=== PATIENT | female | born 1980 | race Hispanic/Latino ===

== ENCOUNTER 2021-11-14 10:38 | Emergency (ER) | payer OTHER ==
[~2021-11-14] VITALS: Ht 144.8 cm; Wt 74.8 kg
[2021-11-14] MEDS ORDERED: ONDANSETRON ODT4 MG PO (11:07)
[2021-11-14] MEDS ORDERED: BACTRIM DS TAB1 EACH PO (11:07)
[2021-11-14] MEDS ORDERED: MELOXICAM7.5 MG PO (11:07)
== END 2021-11-14 11:23 | disposition home or self-care (01) ==
LOC: FSED 10:51
DX: R30.0 Dysuria (principal); N39.0 Urinary tract infection, site not specified; R10.30 Lower abdominal pain, unspecified; R11.0 Nausea
CPT/HCPCS: 81003; 81025; 99282